=== PATIENT | male | born 1965 | race Caucasian/White ===

== ENCOUNTER 2020-10-17 14:33 | Emergency (ER) | payer BC, SELFPAY ==
[2020-10-17 14:44] VITALS: BP 142/89; PULSE 92; RESP 16; TEMP 36.8; O2SAT 99
--- NOTE | 2020-10-17 14:49 | ED.URI ---
HPI - URI/Sore Throat General Chief Complaint: Upper Respiratory Infection Stated Complaint: COUGH/TIRED Source: patient Mode of arrival: ambulatory Limitations: no limitations History of Present Illness HPI Narrative: Patient here complaining of a cough, fatigue and hot flashes x 3 days. He denies fever, shortness of breath, sore throat, congestion or rhinorrhea. He denies taking abci-bby-chpndod medications prior to arrival. Patient is concerned with Covid and is requesting testing at this time. Related Data Home Medications Medication Instructions Recorded Confirmed eszopiclone mg 10/17/20 trazodone 10/17/20 Allergies Allergy/AdvReac Type Severity Reaction Status Date / Time No Known Allergies Allergy Unverified 05/06/17 13:56 [facility] Past Medical History Medical History (Updated 10/17/20 @ 15:17 by NEENA White) No significant past medical history Surgical History Surgical History (Updated 10/17/20 @ 14:57 by NEENA White) No significant past surgical history Family History Family History (Updated 10/17/20 @ 14:57 by NEENA White) Other No significant family history Social History Social History (Updated 10/17/20 @ 14:58 by NEENA White) Smoking status: Never smoker Alcohol intake: never Substance use: never Living arrangements: alone Occupation/Education: occupation Gender identity (if verbalized by the patient): Male Exam Narrative: Exam Narrative: GENERAL: Well-appearing, well-nourished, and in no acute distress. HEAD: Normocephalic, atraumatic. EYES: No redness or drainage. Conjunctiva are normal. ENT: Mucous membranes pink and moist. CHEST: No respiratory distress. HEART: Regular rate and rhythm. EXTREMITIES: Normal range of motion. SKIN: Warm, dry, no rash. NEURO: No focal deficits. Alert and oriented x3. Gait steady. PSYCH: Normal affect. No signs of depression or anxiety. Course Vital Signs Vital signs: Vital Signs Temperature 36.8 C 10/17/20 14:44 Pulse Rate 92 10/17/20 14:44 Respiratory Rate 16 10/17/20 14:44 Blood Pressure 142/89 H 10/17/20 14:44 Pulse Oximetry 99 10/17/20 14:44 Temperature 36.8 C 10/17/20 14:44 Pulse Rate 92 10/17/20 14:44 Respiratory Rate 16 10/17/20 14:44 Blood Pressure 142/89 H 10/17/20 14:44 Pulse Oximetry 99 10/17/20 14:44 Reviewed. Patient has been instructed to follow-up with his PCP regarding his blood pressure. MDM - URI/Sore Throat Differential Diagnosis Differential diagnosis: Likely upper respiratory infection, otitis media, viral infection, pharyngitis and other (Covid) Critical Care Time Critical Care Time Critical Care Time: No Discharge Plan Discharge Clinical Impression: Encounter for screening laboratory testing for COVID-19 virus Upper respiratory infection Qualifiers: URI type: unspecified URI Qualified Code(s): J06.9 - Acute upper respiratory infection, unspecified Patient Disposition: Home, Self-Care Condition: Stable Instructions: Antibiotic Form Additional Instructions: Your rapid Covid test was negative in urgent care at this time. A PCR was sent, results of that test will be available in 24 to 48 hours, someone from our urgent care will call you at that time. Until you receive results, continue the quarantine. You should quarantine until contacted by your health department. Prescriptions: No Action trazodone 50 mg tablet RF: 0 eszopiclone 1 mg tablet RF: 0 Follow-up/Referrals: Johan Grider MD [Other] Time of Disposition: 15:17
[2020-10-18 19:48] LABS: SARS-CoV-2 RNA PCR Negative
== END 2020-10-17 15:36 | disposition home or self-care (01) ==
PROVIDERS: Emergency Provider Nurse Practitioner
DX: Z20.822 Contact with and (suspected) exposure to COVID-19 (principal); J06.9 Acute upper respiratory infection, unspecified
CPT/HCPCS: 87426; 99203; C9803; G0463; U0003; U0005